=== PATIENT | female | born 1990 | race Caucasian/White ===

== ENCOUNTER 2022-04-09 15:07 | Emergency (ER) | payer MEDICAID ==
[~2022-04-09] VITALS: Ht 167.6 cm; Wt 82.0 kg
[2022-04-09 15:15] VITALS: BP 119/71
[2022-04-09] MEDS ORDERED: ONDANSETRON HCL 4MG/2ML INJ IV ONE (16:00)
[2022-04-09] MEDS ORDERED: SODIUM CHLORIDE 0.9% 1,000 ML IV ONE (16:00)
[2022-04-09] MEDS ORDERED: ONDANSETRON 4MG ODT PO ONE (16:00)
[2022-04-09 16:33] LABS: BASOPHILS % 0.2 % (0.0-2.0); EOSINOPHILS % 0.1 % (0.0-5.0); HEMATOCRIT. 40.9 % (36.0-48.0); LYMPHOCYTES % 9.5 % (20.0-50.0); MEAN CORPUSCULAR HEMOGLOBIN 25.9 pg (28.0-32.0); MEAN CORPUSCULAR VOLUME 81.2 fL (81.0-99.0); MEAN PLATELET VOLUME 9.2 fl (7.4-10.4); MONOCYTES % 4.5 % (2.0-8.0); NEUTROPHILS % 85.7 % (40.0-76.0); PLATELET 256 x1000/uL (130-400); RED BLOOD CELL COUNT 5.03 mill/uL (4.2-5.4); RED CELL DISTRIBUTION WIDTH 18.7 % (11.6-14.6)
[2022-04-09 16:55] LABS: CLARITY URINE TURBID (CLEAR); COLOR URINE YELLOW (YELLOW); KETONES URINE 4+ (NEGATIVE); LEUKOCYTE ESTERASE URINE 3+ (NEGATIVE); NITRITE URINE NEGATIVE (NEGATIVE); OCCULT BLOOD URINE 2+ (NEGATIVE); PROTEIN URINE 2+ (NEGATIVE); SPECIFIC GRAVITY URINE 1.032 (1.005-1.030)
[2022-04-09] MEDS ORDERED: CEFTRIAXONE SODIUM 500 MG/VIAL IM ONE (18:00)
[2022-04-09] MEDS ORDERED: LIDOCAINE HCL 1% 20ML VIAL (Pyxis) INJ INFIL ONE (18:00)
[2022-04-09] MEDS ORDERED: AZITHROMYCIN 500 MG TABLET PO ONE (18:00)
[2022-04-09] MEDS ORDERED: METRONIDAZOLE 500MG TABLET PO ONE (18:00)
[2022-04-09 18:02] LABS: CHLORIDE 104 mEq/L (98-107)
[2022-04-09 18:26] LABS: B-HCG QUANTITATIVE 63477 mIU/mL (<3)
[2022-04-09] MEDS ORDERED: ONDA4TAB11 PO (18:29)
[2022-04-09] MEDS ORDERED: CEPH500C2 MT (18:29)
[2022-04-13 04:06] LABS: NEISSERIA GONORRHOEAE NAA Negative (Negative)
== END 2022-04-09 19:07 | disposition home or self-care (01) ==
LOC: ER 15:07
DX: O26.891 Other specified pregnancy related conditions, first trimester (principal); O21.0 Mild hyperemesis gravidarum; O23.41 Unspecified infection of urinary tract in pregnancy, first trimester; N39.0 Urinary tract infection, site not specified; O98.311 Other infections with a predominantly sexual mode of transmission complicating pregnancy, first trimester; A59.01 Trichomonal vulvovaginitis; R10.9 Unspecified abdominal pain; Z3A.01 Less than 8 weeks gestation of pregnancy
CPT/HCPCS: 36415; 76801; 76817; 80053; 81003; 84702; 85025; 86850; 86900; 86901; 87086; 87491; 87591; 93005; 96361; 96372; 96374; 99285; J0696; J2405; J3490; J7030

== ENCOUNTER 2022-11-07 12:32 | Observation (INO) | payer MEDICAID ==
[~2022-11-07] VITALS: Ht 165.1 cm; Wt 96.2 kg
[~2022-11-07 12:32] MED LIST: CEPH500C2 MT; ONDA4TAB11 PO
[2022-11-07] MEDS ORDERED: MAGNESIUM 20 G PREMIX (L & D) 500 ML IV SCH (14:45)
[2022-11-07] MEDS ORDERED: RHO(D) IMMUNE GLOBULIN 300 MCG/SYR IM PRN (14:45)
[2022-11-07] MEDS ORDERED: BETAMETHASONE ACET/BETAMET 30 MG/5 ML VIAL IM ONE (14:45)
[2022-11-07] MEDS ORDERED: MAGNESIUM 4 G PREMIX 100 ML IV NR (14:45)
[2022-11-07] MEDS ORDERED: LACTATED RINGERS 1,000 ML IV SCH (15:00)
== END 2022-11-07 17:35 | disposition home or self-care (01) ==
LOC: 8 EST A/PP 12:32 → OBSVTOIN 12:50 → INTOOBSV 12:50 → 8 EST LDRP 16:38
PROVIDERS: ADMIT Specialist; ATTEND Specialist
DX: O62.9 Abnormality of forces of labor, unspecified (principal); O46.92 Antepartum hemorrhage, unspecified, second trimester; O23.42 Unspecified infection of urinary tract in pregnancy, second trimester; O26.892 Other specified pregnancy related conditions, second trimester; N89.8 Other specified noninflammatory disorders of vagina; Z3A.22 22 weeks gestation of pregnancy
CPT/HCPCS: 59025; 76805; 96360; 96361; G0378; 99281; J0702; J3475; J7120